=== PATIENT | female | born 1935 ===

== ENCOUNTER 2016-12-18 14:40 | Outpatient (CLI) | payer MEDICARE ==
[2016-12-18 14:50] LABS: INR-International Normal Ratio 2.4; Prothrombin Time 26.4 SEC (12.0-14.7)
== END 2016-12-18 14:41 | disposition home or self-care (01) ==
LOC: MADLAB 14:40
PROVIDERS: ATTEND Family Medicine
DX: Z51.81 Encounter for therapeutic drug level monitoring (principal); E11.9 Type 2 diabetes mellitus without complications; Z79.01 Long term (current) use of anticoagulants
CPT/HCPCS: 36415; 85610

== ENCOUNTER 2017-01-01 14:06 | Outpatient (CLI) | payer MEDICARE ==
[2017-01-02 11:38] LABS: INR-International Normal Ratio 2.5; Prothrombin Time 26.6 SEC (12.0-14.7)
== END 2017-01-01 14:07 | disposition home or self-care (01) ==
LOC: MADLAB 14:06
PROVIDERS: ATTEND Family Medicine
DX: E11.9 Type 2 diabetes mellitus without complications (principal); I10 Essential (primary) hypertension; J18.9 Pneumonia, unspecified organism
CPT/HCPCS: 36415; 85610

== ENCOUNTER 2017-01-22 13:19 | Outpatient (CLI) | payer MEDICARE ==
[2017-01-22 13:31] LABS: INR-International Normal Ratio 2.7; Prothrombin Time 28.4 SEC (12.0-14.7)
== END 2017-01-22 13:20 | disposition home or self-care (01) ==
LOC: MADLAB 13:19
PROVIDERS: ATTEND Internal Medicine Cardiovascular Disease
DX: Z51.81 Encounter for therapeutic drug level monitoring (principal); Z79.01 Long term (current) use of anticoagulants
CPT/HCPCS: 36415; 85610